=== PATIENT | female | born 1980 | race Two or more races ===

== ENCOUNTER 2016-10-10 11:14 | Day surgery (SDC) | payer OTHER ==
[~2016-10-10] VITALS: Ht 162.6 cm; Wt 57.1 kg
[2016-10-10] VITALS (14 sets, daily range): BP systolic 91–103; BP diastolic 56–67; PULSE 50–68; RESP 8–22; Ht 162.6 cm; Wt 57.1 kg
--- NOTE | 2016-10-10 06:38 | PREOPHP ---
DATE OF ADMISSION: 10/10/2016 HISTORY OF PRESENT ILLNESS: This is a 35-year-old lady, 0. Her last normal menstrual perio d was a few days prior to admission. She was admitted for excision and electrocautery of multiple v ulvar and perirectal warts. She also has 2 cm excess tissue on the right upper labia, this is suppo sed to be excised as well. The procedures were explained to the patient, and she understood everyth ing totally. The risks, benefits, and alternatives were discussed with her as well. PAST PERSONAL HISTORY: No history of TB, asthma. ALLERGIES: NO ALLERGIES. SOCIAL HISTORY: The patient does not smoke. She does not drink. She does not take any drugs excep t ____. GYNECOLOGIC HISTORY: She had menarche at the age of 13, every 28 days interval, 3 to 4 days' durati on, and moderate in amount. FAMILY HISTORY: Mother has diabetes and hypertension. Father has heart disease and had a stroke. PAST SURGICAL HISTORY: She had a gastric band in 2007, she had rhinoplasty in 2005 and 2008. REVIEW OF SYSTEMS: CARDIOVASCULAR: No chest pains. RESPIRATORY: No cough. GASTROINTESTINAL: No diarrhea, no vomiting. GENITOURINARY: No dysuria. PHYSICAL EXAMINATION: GENERAL: Reveals a conscious coherent lady in no acute distress. VITAL SIGNS: Her blood pressure 120/80, pulse rate 80 per minute, respirations 16 per minute. BREASTS: Within normal limits. HEART: Within normal limits. LUNGS: Within normal limits. ABDOMEN: Soft. No organomegaly. PELVIC: Revealed the cervix to be firm, uterus of normal size, and adnexa were negative for masses. Multiple genital warts noted, perirectal and vulvar area, also 2 cm excess tissue was noted on the right upper labia. PLAN: The patient was planned to have excision of the excess tissue, electrocautery, and excision o f the multiple genital warts. The procedures were explained to her, and she understood everything t otally. The risks, benefits, and alternatives were discussed with her as well. Dictated By: MERLIN CHAMPAGNE/NTS Conf#: [id number] DID#: [id number]
[2016-10-10] MEDS ORDERED: BUPIVACAINE 0.5% (SDV) 30 ML INJ ONE (16:13)
[2016-10-10] MEDS ORDERED: LIDOCAINE 1% (STERILE-PAK) 30 ML INJ ONE (16:13)
[2016-10-10] MEDS ORDERED: LIDOCAINE 2% (SDV) 5 ML INJ ONE (16:50)
[2016-10-10] MEDS ORDERED: PROPOFOL 20 ML ONE (16:50)
[2016-10-10] MEDS ORDERED: MEPERIDINE 100 MG INJ ONE (16:52)
[2016-10-10] MEDS ORDERED: METOCLOPRAMIDE 10 MG INJ ONE (17:15)
[2016-10-10] MEDS ORDERED: ONDANSETRON 4 MG INJ ONE (17:15)
[2016-10-10] MEDS ORDERED: FENTAnyl 50 MCG/ML VIAL ONE (17:42)
[2016-10-10] MEDS ORDERED: DIPHENHYDRAMINE 50 MG INJ IV PRN (18:00)
[2016-10-10] MEDS ORDERED: MEPERIDINE 25 MG INJ IV PRN (18:00)
[2016-10-10] MEDS ORDERED: METOCLOPRAMIDE 10 MG INJ IV PRN (18:00)
[2016-10-10] MEDS ORDERED: MIDAZOLAM 1 MG/ML 2 ML INJ IV PRN (18:00)
[2016-10-10] MEDS ORDERED: morphine (1 MG/ML) 10ML SYRINGE IV PRN ×2 (18:00)
[2016-10-10] MEDS ORDERED: ONDANSETRON 4 MG INJ IV PRN (18:00)
[2016-10-10] MEDS ORDERED: FENTAnyl 50 MCG/ML VIAL IV PRN ×2 (18:00)
--- NOTE | 2016-10-10 21:26 | OPR ---
DATE OF OPERATION: 10/10/2016 PREOPERATIVE DIAGNOSIS: Right upper labial tear and multiple genital warts, vulvar and perirectal. POSTOPERATIVE DIAGNOSIS: Right upper labial tear and multiple genital warts, vulvar and perirectal. OPERATION PERFORMED: Excision of 2 cm right upper labial tear and fulguration and excision of multiple genital warts. SURGEON: Ana Castillo MD EVENT SET UP SPECIALIST: safety technician. ANESTHESIA: General. OPERATION PERFORMED: Excision of right upper labial tear, 2 x 2 cm of multiple perirectal and vulvar warts. OPERATIVE TECHNIQUE: Under general anesthesia, the patient was prepped and draped in the usual fashion for vaginal surgery. Pelvic exam under anesthesia revealed the cervix to be firm, uterus of normal size, and adnexa were negative for masses. Then there were multiple genital warts noted at the vulva and at the perirectal area measuring from 1 cm to 0.5 cm. Some of the lesions were excised and all the genital warts were cauterized. Then there is a lesion in the right upper labia about 2 cm that was noted to be hanging and it looks like it is a tear on the right labia, so this was excised by putting a and excising the lesion and the stump was cauterized. Bleeders were checked and there was no bleeding noted. The patient tolerated the procedure well. Estimated blood loss was minimal. Vital signs were stable during and after the procedure. Dictated By: ANA CASTILLO MD NS/NTS Conf#: [id number] DID#: [id number] CC: ANA CASTILLO MD;*EndCC* MTDD
== END 2016-10-12 15:18 | disposition home or self-care (01) ==
LOC: SDS 11:14
PROVIDERS: ATTEND Obstetrics & Gynecology
DX: A63.0 Anogenital (venereal) warts (principal)
CPT/HCPCS: 11426; 84703; 86850; 86900; 86901; 88305; J2175; J2405; J2765; J3010; Z7512; Z7610